=== PATIENT | male | born 1960 | race Caucasian/White ===

== ENCOUNTER 2021-12-04 09:07 | Outpatient (CLI) | payer BC, SELFPAY ==
--- NOTE | ~2021-12-04 | XR_ITS ---
EXAMINATION: XR abdomen/kub 1V INDICATION: Gross hematuria TECHNIQUE: Supine views of the abdomen were obtained on 2 radiographs. COMPARISON: None FINDINGS: No urolithiasis is identified. The bowel gas pattern is normal. There is a moderate volume of colonic stool. 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 IMPRESSION: 1. No radiographic correlate for the patient's symptoms. Reviewed, dictated and finalized at location A.
--- NOTE | ~2021-12-04 | CT_ITS ---
EXAMINATION: CT abdomen pelvis wo/w con DATE: 12/04/2021 10:19 INDICATION: Gross hematuria TECHNIQUE: Computed tomography (CT) of the abdomen and pelvis was performed without intravenous contr ast. CT of the abdomen and pelvis was then performed with a total of 130 mL Omnipaque 300 intravenous contrast using a double-bolus technique for simultaneous opacification of the renal parenchyma and r enal collecting system. The dose-length product (DLP) was 2952.11 mGy-cm. Automated exposure control and iterative reconstruction technique were employed. COMPARISON: None FINDINGS: Minimal dependent atelectasis is present in the lung bases. The heart size is normal. There is a small sliding hiatal hernia. There is soft tissue gas posteriorly in the right lower thorax. Th e liver, spleen, pancreas, and adrenal glands are normal. Stones are present in the nondistended gall bladder. Much of the ureters are not opacified with contrast however no stricture or mass is identifi ed. No suspicious masses are seen in the kidneys. There appears to be mild eccentric wall thickening of the bladder wall anteriorly. No pathologically enlarged abdominal or pelvic lymph nodes are identi fied. There is no free intraperitoneal gas or evidence of bowel obstruction. A large volume of coloni c stool is present. There is moderate osteoarthritis of the hips. Severe lower lumbar spondylosis is noted. IMPRESSION: 1. Possible eccentric wall thickening of the anterior bladder wall. Direct visualization is recommend ed. 2. Cholelithiasis without evidence of cholecystitis. 3. Constipation. Reviewed, dictated and finalized at location A. IMPRESSION: 1. Possible eccentric wall thickening of the anterior bladder wall. Direct visu alization is recommended. 2. Cholelithiasis without evidence of cholecystitis. 3. Constipation.
[2021-12-04 10:04] LABS: Estimated Glomerular Filt Rate > 60
== END 2021-12-04 09:08 | disposition home or self-care (01) ==
PROVIDERS: PCP Family Medicine; Visit Provider Urology
DX: R31.0 Gross hematuria (principal); K59.00 Constipation, unspecified; K80.20 Calculus of gallbladder without cholecystitis without obstruction
CPT/HCPCS: 74018; 74178; Q9967